=== PATIENT | female | born 1995 | race African-American/Black ===

== ENCOUNTER 2017-10-31 09:17 | Emergency (ER) | payer MEDICAID, OTHER ==
[~2017-10-31] VITALS: Ht 165.1 cm; Wt 68.0 kg
[~2017-10-31 09:17] MED LIST: CIPROFLOXACIN500 M2 ORAL; FLUCONAZOLE150 MG ORAL; METRONIDAZOLE500 MG ORAL; NKM; PROMETHAZINE-C118 M1 ORAL; ROBITUSSIN LON118 ML PO; TYLENOL EXTRA500 MG ORAL; ZITHROMAX250 MG ORAL
--- NOTE | 2017-10-31 09:34 | Emergency Room Report ---
History of Present Illness General Chief Complaint: Earache Source: Patient Present Illness HPI Patient presents with continued ringing in her right ear She reports that this started about 2 months ago Just after being at an event where there was last speakers on her right side She saw her primary physician soon after that and was told that it would likely improve by itself As a symptom has persisted she presented to the ER Denies any other sore throat denies any other injury denies any chest pain or shortness of breath The ringing is fairly continuous Allergies: Coded Allergies: NO KNOWN DRUG ALLERGIES (Unverified Allergy, Unknown, 09/15/14) Patient History Past Medical History: see triage record Pertinent Family History: none Last Menstrual Period: 07/30/17 Reviewed Nursing Documentation: PMH: Agreed; PSxH: Agreed Nursing Documentation-PMH Past Medical History: No Stated History Review of Systems All Other Systems: negative except mentioned in HPI Physical Exam Vital Signs Date Time Temp Pulse Resp B/P (MAP) Pulse Ox O2 Delivery O2 Flow Rate FiO2 10/31/17 09:20 97.8 79 16 116/68 96 Room Air 97.9 Sp02 EP Interpretation: reviewed, normal General Appearance: well appearing, no apparent distress Head: normocephalic, atraumatic Eyes: bilateral eye PERRL, bilateral eye EOMI ENT: other - Mild bulging of the right tympanic membrane, canal is otherwise clear, no signs of perforation Neck: supple Respiratory: lungs clear Musculoskeletal: normal inspection Neurologic: alert, oriented x3, responsive Skin: no rash Lymphatic: no adenopathy Medical Decision Making Diagnostic Impression: Primary Impression: Tinnitus ER Course Patient presents with tinnitus that has started In close association with loud sound Consideration for other pathology such as intracranial, neurological differentials is much lower Patient was encouraged at this point follow-up with her primary physician for ENT specialty referral would be appropriate given the mild bulging patient was placed on decongestant she reports that she did also have URI symptoms about 2 weeks ago to see if this will help her symptoms , Last Vital Signs Date Time Temp Pulse Resp B/P (MAP) Pulse Ox O2 Delivery O2 Flow Rate FiO2 10/31/17 09:20 97.8 79 16 116/68 96 Room Air 97.9 Status: unchanged Disposition: HOME, SELF-CARE Condition: Stable Additional Instructions: Patient is provided with the discharge instructions notified to follow up with primary doctor in the next 2-3 days otherwise return to the er with any worsening symptoms. Please note that this report is being documented using DRAGON technology. This can lead to erroneous entry secondary to incorrect interpretation by the dictating instrument. Jennifer Gray DO October 31, 2017 09:34
[2017-10-31] MEDS ORDERED: ZYRTEC10 MG ORAL (09:35)
[2017-10-31 09:40] VITALS: BP 116/68
[2017-10-31 09:45] VITALS: BP 116/68
== END 2017-10-31 10:00 | disposition home or self-care (01) ==
LOC: EMR 09:52
DX: H93.11 Tinnitus, right ear (principal)
CPT/HCPCS: 99283